=== PATIENT | male | born 1945 | race African-American/Black ===

== ENCOUNTER 2022-12-31 06:40 | Emergency (ER) | payer OTHER ==
[2022-12-31 06:59] VITALS: BP 154/99; PULSE 79; RESP 18; TEMP 98.3; BMI 25.8
[2022-12-31] MEDS ORDERED: FLUORESCEIN NA 1 EA STRIP OD ONE (07:07)
[2022-12-31] MEDS ORDERED: TETRACAINE 0.5% HCL 0.6ML DROPPER.BOTTLE OD ONE (07:07)
[2022-12-31] MEDS ORDERED: TETRACAINE 0.5% OPHTH SOLN 2 ML BOTTLE ONE (07:08)
[2022-12-31] MEDS ORDERED: FLUORESCEIN NA 1 EA STRIP ONE (07:08)
[2022-12-31] MEDS ORDERED: ERYTHROMYCIN 0.5% OPHTHALMIC OINTMENT 3.5 GM TUBE OD ONE (07:30)
[2022-12-31] MEDS ORDERED: ERYTHROMYCIN 0.5% OPHTHALMIC OINTMENT 3.5 GM TUBE ONE (07:30)
== END 2022-12-31 08:00 | disposition home or self-care (01) ==
LOC: JERFT 06:40
DX: H57.12 Ocular pain, left eye (principal); H57.89 Other specified disorders of eye and adnexa; S05.02XA Injury of conjunctiva and corneal abrasion without foreign body, left eye, initial encounter; X10.2XXA Contact with fats and cooking oils, initial encounter; Y93.G3 Activity, cooking and baking
CPT/HCPCS: 99283-25